=== PATIENT | male | born 1985 | race African-American/Black ===

== ENCOUNTER 2021-04-30 05:14 | Emergency (ER) | payer MEDICAID ==
[~2021-04-30] VITALS: Ht 177.8 cm; Wt 85.0 kg
[2021-04-30 06:00] LABS: BASOPHILS % 0.7 % (0.0-2.0); EOSINOPHILS % 0.2 % (0.0-5.0); HEMATOCRIT. 43.9 % (42.0-52.0); HEMOGLOBIN. 14.4 g/dL (14.0-18.0); LYMPHOCYTES % 26.7 % (20.0-50.0); MEAN CORPUSCULAR VOLUME 70.5 fL (80.0-94.0); MONOCYTES % 6.4 % (2.0-8.0); PLATELET 251 x1000/uL (130-400); RED BLOOD CELL COUNT 6.24 mill/uL (4.7-6.1); RED CELL DISTRIBUTION WIDTH 17.1 % (11.6-14.6)
[2021-04-30 06:07] LABS: CHLORIDE 99 mEq/L (98-107)
[2021-04-30 06:11] LABS: ETHANOL BLOOD 57 mg/dL
[2021-04-30 06:16] LABS: VALPROIC ACID <3.0 ug/mL ug/mL (50-100)
[2021-04-30] MEDS ORDERED: LORAZEPAM 1MG TABLET PO ONE (06:45)
[2021-04-30 08:38] LABS: CLARITY URINE CLEAR (CLEAR); COLOR URINE YELLOW (YELLOW); KETONES URINE 1+ (NEGATIVE); LEUKOCYTE ESTERASE URINE NEGATIVE (NEGATIVE); NITRITE URINE NEGATIVE (NEGATIVE); OCCULT BLOOD URINE NEGATIVE (NEGATIVE); PH URINE 5.5 (4.5-8.0); PROTEIN URINE 1+ (NEGATIVE); SPECIFIC GRAVITY URINE 1.018 (1.005-1.030)
[2021-04-30 08:39] VITALS: BP 158/98
[2021-04-30 09:16] LABS: *AMPHETAMINES SCREEN URINE PRESUMTIVE POSITIVE (NEGATIVE); *BARBITURATES SCREEN URINE NEGATIVE (NEGATIVE); *BENZODIAZEPINES SCREEN URINE NEGATIVE (NEGATIVE)
[2021-04-30 09:17] LABS: *COCAINE SCREEN URINE NEGATIVE (NEGATIVE); METHADONE URINE SCREEN NEGATIVE (NEGATIVE); OPIATES URINE SCREEN NEGATIVE (NEGATIVE)
[2021-04-30 09:18] LABS: PHENCYCLIDINE URINE SCREEN NEGATIVE (NEGATIVE)
[2021-04-30 09:19] LABS: CANNABINOID URINE SCREEN NEGATIVE (NEGATIVE)
== END 2021-04-30 08:42 | disposition home or self-care (01) ==
LOC: ER 05:14
DX: F29 Unspecified psychosis not due to a substance or known physiological condition (principal); F19.10 Other psychoactive substance abuse, uncomplicated; I10 Essential (primary) hypertension; F12.10 Cannabis abuse, uncomplicated; F15.10 Other stimulant abuse, uncomplicated
CPT/HCPCS: 36415; 80053; 80165; 80305; 80320; 81003; 82962; 85025; 93005; 99284; Z7610; G0480

== ENCOUNTER 2021-10-06 01:06 | Emergency (ER) | payer MEDICAID, OTHER ==
[~2021-10-06] VITALS: Ht 175.3 cm; Wt 82.0 kg
[2021-10-06] MEDS ORDERED: OLANZAPINE 10 MG/VIAL IM ONE ×2 (01:45→09:45)
[2021-10-06 03:32] LABS: CHLORIDE 99 mEq/L (98-107)
[2021-10-06 03:36] LABS: ETHANOL BLOOD < 10 mg/dL
[2021-10-06 03:45] LABS: BASOPHILS % 0.6 % (0.0-2.0); EOSINOPHILS % 0.1 % (0.0-5.0); HEMATOCRIT. 40.2 % (42.0-52.0); HEMOGLOBIN. 13.1 g/dL (14.0-18.0); LYMPHOCYTES % 8.6 % (20.0-50.0); MEAN CORPUSCULAR HEMOGLOBIN 22.6 pg (28.0-32.0); MEAN CORPUSCULAR VOLUME 69.4 fL (80.0-94.0); MEAN PLATELET VOLUME 8.7 fl (7.4-10.4); MONOCYTES % 6.4 % (2.0-8.0); NEUTROPHILS % 84.3 % (40.0-76.0); PLATELET 229 x1000/uL (130-400); RED CELL DISTRIBUTION WIDTH 14.6 % (11.6-14.6)
[2021-10-06 05:24] LABS: CLARITY URINE CLEAR (CLEAR); COLOR URINE YELLOW (YELLOW); KETONES URINE 2+ (NEGATIVE); LEUKOCYTE ESTERASE URINE NEGATIVE (NEGATIVE); NITRITE URINE NEGATIVE (NEGATIVE); OCCULT BLOOD URINE 1+ (NEGATIVE); PROTEIN URINE NEGATIVE (NEGATIVE); SPECIFIC GRAVITY URINE 1.009 (1.005-1.030)
[2021-10-06 05:42] LABS: *AMPHETAMINES SCREEN URINE PRESUMTIVE POSITIVE (NEGATIVE); *BARBITURATES SCREEN URINE NEGATIVE (NEGATIVE); *BENZODIAZEPINES SCREEN URINE NEGATIVE (NEGATIVE); *COCAINE SCREEN URINE PRESUMTIVE POSITIVE (NEGATIVE); METHADONE URINE SCREEN NEGATIVE (NEGATIVE); OPIATES URINE SCREEN NEGATIVE (NEGATIVE)
[2021-10-06 05:43] LABS: CANNABINOID URINE SCREEN NEGATIVE (NEGATIVE); PHENCYCLIDINE URINE SCREEN NEGATIVE (NEGATIVE)
[2021-10-06 07:33] LABS: PLATELET ESTIMATE NORMAL
[2021-10-06] MEDS ORDERED: LORAZEPAM 2MG/ML CPJ IM PRN (09:45)
[2021-10-06] MEDS: OLANZAPINE 5MG TABLET PO SCH (22:19)
[2021-10-07] MEDS: OLANZAPINE 5MG TABLET PO SCH ×2 (11:04→21:00)
[2021-10-07] MEDS: QUETIAPINE FUMARATE 25MG TABLET PO SCH (21:00)
[2021-10-07] MEDS: FLUOXETINE HCL 10 MG CAPSULE PO SCH (22:09)
[2021-10-08] MEDS: FLUOXETINE HCL 10 MG CAPSULE PO SCH (10:10)
[2021-10-08] MEDS: OLANZAPINE 5MG TABLET PO SCH ×2 (10:10→21:15)
[2021-10-08] MEDS ORDERED: ACETAMINOPHEN 325MG TABLET PO NR (18:00)
[2021-10-08] MEDS: QUETIAPINE FUMARATE 25MG TABLET PO SCH (21:15)
[2021-10-09] MEDS: OLANZAPINE 5MG TABLET PO SCH ×2 (08:13→21:00)
[2021-10-09] MEDS: FLUOXETINE HCL 10 MG CAPSULE PO SCH (08:13)
[2021-10-09] MEDS: QUETIAPINE FUMARATE 25MG TABLET PO SCH (21:00)
[2021-10-10] MEDS: FLUOXETINE HCL 10 MG CAPSULE PO SCH (08:41)
[2021-10-10] MEDS: OLANZAPINE 5MG TABLET PO SCH ×2 (08:41→21:51)
[2021-10-10] MEDS: QUETIAPINE FUMARATE 25MG TABLET PO SCH (21:51)
[2021-10-11] MEDS: FLUOXETINE HCL 10 MG CAPSULE PO SCH (10:08)
[2021-10-11] MEDS: OLANZAPINE 5MG TABLET PO SCH ×2 (10:08→21:52)
[2021-10-11] MEDS: QUETIAPINE FUMARATE 50MG TABLET PO SCH (21:52)
[2021-10-12] MEDS: OLANZAPINE 5MG TABLET PO SCH ×2 (09:00→22:41)
[2021-10-12] MEDS: FLUOXETINE HCL 10 MG CAPSULE PO SCH (09:00)
[2021-10-12] MEDS: QUETIAPINE FUMARATE 50MG TABLET PO SCH (22:40)
[2021-10-13 07:50] VITALS: BP 116/66
== END 2021-10-13 08:05 ==
LOC: ER 01:20
DX: R45.851 Suicidal ideations (principal); R45.850 Homicidal ideations; R44.0 Auditory hallucinations; F19.10 Other psychoactive substance abuse, uncomplicated; F31.9 Bipolar disorder, unspecified; I10 Essential (primary) hypertension; Z20.822 Contact with and (suspected) exposure to COVID-19
CPT/HCPCS: 36415; 80053; 80305; 80307; 80320; 80329; 81003; 82962; 85025; 87635; 96372; 99285; J2060; J3490; Z7610; G0480